=== PATIENT | male | born 1995 | race Caucasian/White ===

== ENCOUNTER → 2017-11-28 | Outpatient (CLI) | payer OTHER ==
[~2017-11-28] MED LIST: GADAVIST IV PRN
--- NOTE | 2017-11-28 07:51 | DIAGNOSTIC IMAGING REPORT ---
BRAIN COMBO HISTORY: 22 years-old Male R94.02 Abnormal brain scanPatient prefers a M/W/F before 2:30pmM follow-up study to assess a 1.3 cm area of increased T2 signal within the periventricular right frontal lobe COMPARISON: Brain MRI 10/26/2015, 06/11/2014, 10/01/2013, 10/31/2012 TECHNIQUE: Multiplanar multisequence MRI of the brain was obtained both with and without the use of 8 mL Gadavist FINDINGS: There is no restricted diffusion to suggest acute or subacute infarction. Midline structures including the corpus callosum, brainstem, optic chiasm, pituitary and pineal glands are unremarkable in the sagittal T1 series. There is no cerebellar tonsillar herniation. There is no acute intracranial hemorrhage, midline shift, abnormal extra-axial collections, hydrocephalus or definite intracranial mass identified. There are two punctate foci of increased T2/FLAIR signal within the subcortical left frontal lobe, image 8 series 8 which are likely of no clinical significance and appear unchanged from comparison study. There is an ill-defined focus of increased T2/FLAIR signal within the periventricular white matter of the right frontal lobe nicely seen on image 17 series 5 and image 10 series 8 measuring 1.3 x 1.3 x 1.0 cm in AP, transverse and craniocaudal dimensions, unchanged dating back to 10/31/2012. No significant associated mass effect or enhancement. The major flow voids at the level of the skull base appear patent. Orbits are symmetric and unremarkable. Mastoid air cells and paranasal sinuses appear generally clear. Hypoplasia of the left frontal sinus. Scalp, skull and soft tissues are unremarkable. IMPRESSION: 1. No acute intracranial abnormality identified. 2. Unchanged 1.3 cm ill-defined focus of increased T2/FLAIR signal within the periventricular right frontal lobe is stable in size and appearance dating back to study dated 10/31/2012. No abnormal enhancement or significant mass effect. Gliosis from remote insult or demyelinating disease among other etiologies remain differential considerations. A low-grade glioma is thought to be less likely based on 5 year stability. The above report was generated using voice recognition software. It may contain grammatical, syntax or spelling errors. Electronically signed by: Jono Madsen M.D. 11/28/2017 7:50 AM Dictated Date/Time: 11/28/2017 7:38 AM
== END | disposition home or self-care (01) ==
LOC: C.MRIBC 06:53
PROVIDERS: ATTEND Internal Medicine
DX: R94.02 Abnormal brain scan (principal)